=== PATIENT | female | born 1955 | race Caucasian/White ===

== ENCOUNTER → 2018-10-10 | Outpatient (CLI) | payer OTHER | END | disposition home or self-care (01) | LOC: LAB SHORT 14:20 → LAB EV 14:20 | DX: N39.0 Urinary tract infection, site not specified (principal) | CPT/HCPCS: 87077; 87086; 87186 ==

== ENCOUNTER → 2020-09-08 | Outpatient (CLI) | payer OTHER, SELFPAY ==
[2020-09-08 15:27] LABS: Source, Urine Clean Catch
[2020-09-08 15:53] LABS: Appearance, Urine Clear (Clear); Bilirubin, Urine Neg (Neg); Blood, Urine 2+ (Neg); Color, Urine Yellow (P-Yellow); Glucose Qualitative, Urine Neg (Neg); Ketones, Urine Neg (Neg); Leukocyte Esterase, Urine 2+ (Neg); Nitrite, Urine Neg (Neg); Protein, Urine Neg (Neg); Urobilinogen, Urine NORM (Normal)
[2020-09-08 17:14] LABS: Bacteria Few /hpf; Squamous Epithelial Cells Few /hpf (Few)
== END | disposition home or self-care (01) ==
LOC: LAB 14:30 → LAB SHORT 14:30
PROVIDERS: Student in an Organized Health Care Education/Training Program
DX: R30.0 Dysuria (principal)
CPT/HCPCS: 81001; 87086

== ENCOUNTER 2021-07-16 11:37 | Day surgery (SDC) | payer MEDICARE ==
[~2021-07-16] VITALS: Ht 162.6 cm; Wt 82.3 kg
[~2021-07-16 11:37] MED LIST: Durezol5 ML; LOSARTAN-HCTZ1 EAC6; METO25ER
[2021-07-16] MEDS ORDERED: Floxin10 ML (12:02)
[2021-07-16] MEDS ORDERED: KETO.5OPSO LEFTEYE (12:02)
--- NOTE | 2021-07-16 12:15 | NUR ---
07/16/21 1215 Toni Castellon CALL LIGHT WITHIN REACH. EYE DROPS AT 1150, PLEDGETT AT 1152. DR. DUNLAP CONVERSED WITH PT ABOUT BETADINE THOROUGHLY. PATIENT OK WITH USING BETADINE FOR THIS SURGERY.
== END 2021-07-16 13:30 | disposition home or self-care (01) ==
LOC: ORSCSDS 11:37
PROVIDERS: Ophthalmology
PROC: 08RK3JZ Replacement of Left Lens with Synthetic Substitute, Percutaneous Approach (ICD-10-PCS; principal; 2021-07-16 13:00)
DX: H25.12 Age-related nuclear cataract, left eye (principal); I10 Essential (primary) hypertension; E66.9 Obesity, unspecified; Z68.30 Body mass index [BMI] 30.0-30.9, adult; Z79.899 Other long term (current) drug therapy
CPT/HCPCS: J2001; J2250; J3010; J3301; J7040; V2632

== ENCOUNTER 2021-08-06 11:40 | Day surgery (SDC) | payer MEDICARE ==
[~2021-08-06] VITALS: Ht 165.1 cm; Wt 84.3 kg
[~2021-08-06 11:40] MED LIST changes: +Floxin10 ML; +KETO.5OPSO LEFTEYE
--- NOTE | 2021-08-06 11:53 | NUR ---
08/06/21 1153 Kellie Marmolejo TETRACAINE AND PLEDGET PLACED IN THE RIGHT EYE BY [facility].CB
== END 2021-08-06 13:24 | disposition home or self-care (01) ==
LOC: ORSCSDS 11:40
PROVIDERS: Ophthalmology
PROC: 08RJ3JZ Replacement of Right Lens with Synthetic Substitute, Percutaneous Approach (ICD-10-PCS; principal; 2021-08-06 13:00)
DX: H25.11 Age-related nuclear cataract, right eye (principal); I10 Essential (primary) hypertension; F41.8 Other specified anxiety disorders; Z79.899 Other long term (current) drug therapy
CPT/HCPCS: J2001; J2250; J3301; J7040; V2632

== ENCOUNTER 2023-05-16 15:56 | Emergency (ER) | payer OTHER ==
[~2023-05-16] VITALS: Ht 165.1 cm; Wt 81.7 kg
[2023-05-16 16:09] VITALS: BP 184/82
[2023-05-16] MEDS ORDERED: METOPROLOL SUCC25 MG PO (16:12)
[2023-05-16] MEDS ORDERED: DOXY100 PO (17:02)
[2023-05-16] MEDS ORDERED: CEPH500 PO (17:02)
== END 2023-05-16 17:21 | disposition home or self-care (01) ==
LOC: ER 15:56
DX: L03.114 Cellulitis of left upper limb (principal); Z91.048 Other nonmedicinal substance allergy status
CPT/HCPCS: A9270

== ENCOUNTER 2023-05-31 19:18 | Emergency (ER) | payer OTHER ==
[~2023-05-31] VITALS: Ht 165.1 cm; Wt 86.2 kg
[~2023-05-31 19:18] MED LIST changes: +CEPH500 PO; +DOXY100 PO; +METOPROLOL SUCC25 MG PO
[2023-05-31 19:37] VITALS: BP 171/78
[2023-05-31] MEDS ORDERED: Norco 5-325 Ta1 EACH PO (21:49)
== END 2023-05-31 22:08 | disposition home or self-care (01) ==
LOC: ER 19:18
DX: M25.562 Pain in left knee (principal); I80.3 Phlebitis and thrombophlebitis of lower extremities, unspecified; I83.92 Asymptomatic varicose veins of left lower extremity; Z88.8 Allergy status to other drugs, medicaments and biological substances; Z79.899 Other long term (current) drug therapy
CPT/HCPCS: 93971; 96372; 99283-25; A9270; J1885

== ENCOUNTER 2023-06-04 03:52 | Emergency (ER) | payer OTHER ==
[~2023-06-04] VITALS: Ht 165.1 cm; Wt 86.2 kg
[~2023-06-04 03:52] MED LIST changes: +Norco 5-325 Ta1 EACH PO
[2023-06-04 08:24] LABS: BASOPHILS ABSOLUTE AUTO 0.04 K/mm3 (0.00-0.23); BASOPHILS PERCENT AUTO 1 % (0-2); EOSINOPHILS ABSOLUTE AUTO 0.18 K/mm3 (0.00-0.68); EOSINOPHILS PERCENT AUTO 2 % (0-6); Hematocrit 44.9 % (33.0-51.0); Hemoglobin 15.6 g/dL (11.5-16.0); IMMATURE GRAN ABSOLUTE AUTO 0.01 K/mm3 (0.00-0.10); IMMATURE GRAN PERCENT AUTO 0 % (0-1); LYMPHOCYTES PERCENT AUTO 29 % (21-46); MONOCYTES ABSOLUTE AUTO 0.71 K/mm3 (0.16-1.47); MONOCYTES PERCENT AUTO 10 % (4-13); Mean Corpuscular HGB 32.4 pg (26.0-34.0); Mean Corpuscular HGB Conc 34.7 g/dL (31.5-36.5); Mean Corpuscular Volume 93 fL (80-100); Mean Platelet Volume 11.1 fL (9.1-12.4); NEUTROPHILS ABSOLUTE AUTO 4.34 K/mm3 (1.96-9.15); NEUTROPHILS PERCENT AUTO 58 % (41-73); Platelet Count 254 K/mm3 (150-400); RDW Coefficient Variation 12.5 % (11.7-14.2); Red Blood Cell Count 4.81 M/mm3 (3.80-5.20); White Blood Cell Count 7.48 K/mm3 (4.00-11.30)
[2023-06-04 08:47] LABS: Alanine Aminotransfer (ALT/SGP 43 U/L (12-78); Albumin, Blood 3.6 g/dL (3.4-5.0); Albumin/Globulin Ratio 0.9 (0.8-1.8); Alk Phos 92 U/L (50-136); Anion Gap 6 mmol/L (6-16); Aspartate Aminotrans (AST/SGOT 32 U/L (12-37); Bilirubin, Total 0.4 mg/dL (0.1-1.0); Blood Urea Nitrogen 13 mg/dL (8-24); Bun/Creatinine Ratio 24.6 (12.0-20.0); C-REACTIVE PROTEIN, EXT RANGE <0.290 mg/dL (0.000-0.300); CO2, Blood 23 mmol/L (21-32); Calcium, Blood 9.1 mg/dL (8.5-10.1); Chloride, Blood 111 mmol/L (98-108); Creatinine, Blood 0.53 mg/dL (0.40-1.00); Globulin, Blood 3.8 g/dL (2.2-4.0); Glomerular Filtration Rate 101 (60-); Glucose, Blood 119 mg/dL (70-99); Potassium, Blood 4.1 mmol/L (3.5-5.5); Sodium, Blood 140 mmol/L (136-145); Total Protein, Blood 7.4 g/dL (6.4-8.2)
[2023-06-04 11:00] VITALS: BP 165/67
[2023-06-04] MEDS ORDERED: Valium5 MG PO ×2 (11:58→12:32)
[2023-06-04] MEDS ORDERED: CYCL10 PO ×2 (11:58→12:32)
[2023-06-04] MEDS ORDERED: PRED20 PO ×2 (11:58→13:17)
[2023-06-04] MEDS ORDERED: IBUP800 PO ×2 (11:58→12:32)
== END 2023-06-04 12:30 | disposition home or self-care (01) ==
LOC: ER 03:52
PROVIDERS: Physician Assistant
DX: M79.605 Pain in left leg (principal); I10 Essential (primary) hypertension; Z91.041 Radiographic dye allergy status; Z79.52 Long term (current) use of systemic steroids; Z79.899 Other long term (current) drug therapy
CPT/HCPCS: 73502; 80053; 85025; 86140; 96374; 96375; 96376; 99284-25; A9270; J1170; J1885; J3360

== ENCOUNTER → 2024-08-02 | Outpatient (CLI) | payer OTHER ==
[~2024-08-02] MED LIST changes: +CYCL10 PO; +IBUP800 PO; +PRED20 PO; +Valium5 MG PO
== END ==
LOC: LAB 14:24 → LAB SHORT 14:24
DX: R35.0 Frequency of micturition (principal)
CPT/HCPCS: 87077; 87086; 87186